=== PATIENT | female | born 1935 | race Caucasian/White ===

== ENCOUNTER 2016-12-08 10:06 | Emergency (ER) | payer OTHER ==
[~2016-12-08] VITALS: Ht 157.5 cm; Wt 59.0 kg
[2016-12-08 10:06] VITALS: BP 0/0
[~2016-12-08 10:06] MED LIST: ALPR0.25 PO; ATOR20TA PO; BUPR100T14 PO; FURO20TA3 PO; IPR002IS HHN; LEVO500T21 PO; LISI-646 PO; METH4PAK PO; MOME200A INH; NORT25CA PO; Nutritional Supplements PO; OME20T PO; POTA8TAB2 PO; TIOT17SP IN
== END 2016-12-08 12:00 | disposition expired ==
LOC: ER 10:06 → EDBD 10:06 → ER 12:00
DX: I46.9 Cardiac arrest, cause unspecified (principal); I10 Essential (primary) hypertension; E78.5 Hyperlipidemia, unspecified; J44.9 Chronic obstructive pulmonary disease, unspecified; Z79.899 Other long term (current) drug therapy
CPT/HCPCS: 92950